=== PATIENT | female | born 1995 | race Two or more races ===

== ENCOUNTER 2023-10-13 18:16 | Emergency (ER) | payer MEDICARE, MEDICAID ==
[~2023-10-13] VITALS: Ht 149.9 cm; Wt 68.2 kg
[2023-10-13 18:45] VITALS: TEMP 98.7
[2023-10-13] MEDS ORDERED: LIDOCAINE VISCOUS 2% 15ML UD MT ONE (19:15)
[2023-10-13 19:30] VITALS: PULSE 81; RESP 17; O2SAT 95
[2023-10-13 20:04] VITALS: BP 95/69; PULSE 81; RESP 17; O2SAT 95
== END 2023-10-13 22:28 | disposition home or self-care (01) ==
LOC: ER 18:16 → EDBD 18:16 → ER 22:28
DX: T17.328A Food in larynx causing other injury, initial encounter (principal); R41.82 Altered mental status, unspecified; Q90.9 Down syndrome, unspecified; W44.F3XA Food entering into or through a natural orifice, initial encounter; Y93.89 Activity, other specified; Y92.89 Other specified places as the place of occurrence of the external cause; Y99.8 Other external cause status
CPT/HCPCS: 70490; 71250